=== PATIENT | female | born 2000 | race Caucasian/White ===

== ENCOUNTER 2021-05-14 18:49 | Emergency (ER) | payer OTHER ==
[2021-05-14 19:14] VITALS: BP 99/67; PULSE 82; TEMP 97; BMI 19.2
== END 2021-05-14 20:13 | disposition home or self-care (01) ==
LOC: JER 18:49 → JERFT 18:49
DX: H20.9 Unspecified iridocyclitis (principal)
CPT/HCPCS: 99282-25